=== PATIENT | male | born 1965 | race Two or more races ===

== ENCOUNTER 2018-02-09 13:10 | Inpatient (IN) | payer OTHER ==
[2018-02-09 14:07] VITALS: BMI 26.2
--- NOTE | 2018-02-09 20:18 | HP ---
Admission ROS [facility] Chief Complaint: alcohol, cocaine and marijuana rehab Allergies/Adverse Reactions: Allergies Allergy/AdvReac Type Severity Reaction Status Date / Time No Known Allergies Allergy Verified 02/09/18 19:51 History of Present Illness: 53 yo male with hx of alcohol, cocaine, marijuana and nicotine dependence is here for rehabilitation. Reports was seen at [facility] on 02/03/18 for neck pain. PMHX: HTN. Denies suicidal / homicidal ideation. Denies hx of seizures or blackouts. Reports last detox one year ago [facility]. Longest period of sobriety three months. Reference #: [id number] Others' Prescriptions Patient Name: Tevin Saucedo Date: 1965 Address: [address] [place] [address] Sex: Male Rx Written Rx Dispensed Drug Quantity Days Supply Prescriber Name 01/18/2018 01/18/2018 chlordiazepoxide 25 mg capsule 6 2 Mary Urbina MD Exam Limitations: No Limitations - Ebola screening Have you traveled outside of the country in the last 21 days: No Have you had contact with anyone from an Ebola affected area: No Have you been sick,other than usual withdrawal symptoms: No Do you have a fever: No - Review of Systems Constitutional: Changes in sleep EENT: reports: No Symptoms Reported Respiratory: reports: No Symptoms reported Cardiac: reports: No Symptoms Reported GI: reports: No Symptoms Reported : reports: No Symptoms Reported Musculoskeletal: reports: No Symptoms Reported Integumentary: reports: No Symptoms Reported Neuro: reports: Headache Endocrine: reports: Increased Thirst Hematology: reports: No Symptoms Reported Psychiatric: reports: Orientated x3, Agitated Other Systems: Reviewed and Negative Patient History - Patient Medical History Hx Anemia: No Hx Asthma: No Hx Chronic Obstructive Pulmonary Disease (COPD): No Hx Cancer: No Hx Cardiac Disorders: No Hx Congestive Heart Failure: No Hx Hypertension: Yes Hx Hypercholesterolemia: No Hx Pacemaker: No HX Cerebrovascular Accident: No Hx Seizures: No Hx Dementia: No Hx Diabetes: No Hx Gastrointestinal Disorders: No Hx Liver Disease: No Hx Genitourinary Disorders: No Hx Sexually Transmitted Disorders: No Hx Renal Disease (ESRD): No Hx Thyroid Disease: No Hx Human Immunodeficiency Virus (HIV): No (last tested six months ago ) Hx Hepatitis C: No Hx Depression: No Hx Suicide Attempt: No Hx Bipolar Disorder: No Hx Schizophrenia: No - Patient Surgical History Past Surgical History: No - PPD History Previous Implant?: No Documented Results: Negative w/o proof PPD to be Administered?: Yes - Smoking Cessation Smoking history: Current every day smoker Have you smoked in the past 12 months: Yes Aproximately how many cigarettes per day: 4 Hx Chewing Tobacco Use: No Initiated information on smoking cessation: Yes 'Breaking Loose' booklet given: 02/09/18 - Substance & Tx. History Hx Alcohol Use: Yes Hx Substance Use: Yes Substance Use Type: Alcohol Hx Substance Use Treatment: Yes ([facility] one year ago ) - Substances Abused Alprazolam (Xanax) Route: Oral Cocaine Route: Inhalation Frequency: 1-2 times per week Amount used: $20 Age of first use: 19 Date of Last Use: 02/07/18 Marijuana/Hashish Route: Smoking Frequency: Daily Amount used: $25 Age of first use: 19 Date of Last Use: 02/07/18 alcohol Route: Oral Frequency: Daily Amount used: 1 quart vodka Age of first use: 19 Date of Last Use: 02/07/18 Family Disease History - Family Disease History Family History: Unable to Obtain Admission Physical Exam BHS - Vital Signs Vital Signs: Vital Signs - 24 hr 02/09/18 14:03 Temperature 98.5 F Pulse Rate 52 L Respiratory 18 Rate Blood Pressure 140/83 - Physical General Appearance: Yes: Disheveled, Thin, Irritable HEENTM: Yes: EOMI, Hearing grossly Normal, Normal ENT Inspection, Normocephalic , Normal Voice, RUCHI, Pharynx Normal, Tm's normal Respiratory: Yes: Chest Non-Tender, Lungs Clear, Normal Breath Sounds, No Respiratory Distress, No Accessory Muscle Use Neck: Yes: Within Normal Limits Breast: Yes: Breast Exam Deferred Cardiology: Yes: Within Normal Limits Abdominal: Yes: Normal Bowel Sounds, Non Tender, Flat Genitourinary: Yes: Within Normal Limits Back: Yes: Normal Inspection Musculoskeletal: Yes: full range of Motion, Gait Steady, Pelvis Stable Extremities: Yes: Normal Capillary Refill, Normal Inspection, Normal Range of Motion, Non-Tender Neurological: Yes: belly roller II-XII NML intact, Fully Oriented, Alert, Motor Strength 5/5, Depressed Affect Integumentary: Yes: Normal Color, Dry, Warm Lymphatic: Yes: Within Normal Limits - Diagnostic (1) Hypertension Current Visit: Yes Status: Chronic Qualifiers: Hypertension type: essential hypertension Qualified Code(s): I10 - Essential (primary) hypertension (2) Alcohol dependence Current Visit: Yes Status: Acute Qualifiers: Substance use status: uncomplicated Qualified Code(s): F10.20 - Alcohol dependence, uncomplicated (3) Cannabis dependence Current Visit: Yes Status: Acute (4) Cocaine dependence Current Visit: Yes Status: Acute Qualifiers: Substance use status: uncomplicated Qualified Code(s): F14.20 - Cocaine dependence, uncomplicated BHS Breath Alcohol Content Breath Alcohol Content: 0 Urine Drug Screen - Results Drug Screen Negative: No Urine Drug Screen Results: THC-Marijuana, BZO-Benzodiazepines Inpatient Rehab Admission - Initial Determination Are CD services needed?: Yes Free of communicable disease: Yes Not in need of hospitalization: Yes - Rehab Admission Criteria Previous failed treatment: Yes Poor recovery environment: Yes Comorbidities: Yes Lacks judgement: Yes Patient is meeting Inpatient Rehab admission criteria:: Yes
[2018-02-09] MEDS ORDERED: guaiFENesin/D-METHORPHAN HB 10 ML UNIT-DOSE CUPS PO PRN (20:31)
[2018-02-09] MEDS ORDERED: ACETAMINOPHEN 325 MG TABLET (FP) PO PRN (20:31)
[2018-02-09] MEDS ORDERED: MAGNESIUM CITRATE 300 ML BOTTLE PO PRN (20:31)
[2018-02-09] MEDS ORDERED: NICOTINE POLACRILEX 2 MG GUM BUC PRN (20:31)
[2018-02-09] MEDS ORDERED: MAGNESIUM HYDROX 2400MG/30ML ORAL SUSPENSION 30 ML CUP PO PRN (20:31)
[2018-02-09] MEDS ORDERED: LOPERAMIDE HCL 2 MG CAPSULE PO PRN (20:31)
[2018-02-09] MEDS ORDERED: MENTHOL/PHENOL 1 EACH UD MM PRN (20:31)
[2018-02-09] MEDS ORDERED: hydrOXYzine PAMOATE 50 MG CAPSULE (FP) PO PRN (20:31)
[2018-02-09] MEDS ORDERED: MAG HYDROX/AL HYDROX/SIMETH 30 ML UNIT-DOSE CUP PO PRN (20:31)
[2018-02-09] MEDS ORDERED: P-EPHED 60MG/TRIPROLIDI 2.5MG TABLET PO PRN (20:31)
[2018-02-09 23:03] LABS: URINE APPEARANCE CLEAR; URINE BILIRUBIN NEGATIVE (<2.0 mg/dL); URINE COLOR YELLOW; URINE GLUCOSE (UA) NEGATIVE (NEGATIVE); URINE KETONE NEGATIVE (NEGATIVE); URINE LEUK ESTERASE NEGATIVE (NEGATIVE); URINE NITRITE NEGATIVE (NEGATIVE); URINE PROTEIN NEGATIVE (NEGATIVE); URINE UROBILINOGEN NEGATIVE mg/dL (0.2-1.0)
[2018-02-09] MEDS: METHOCARBAMOL 500 MG TABLET PO SCH (23:23)
[2018-02-09] MEDS: THIAMINE HCL 100 MG TABLET (FP) PO SCH (23:24)
[2018-02-09] MEDS ORDERED: cloNIDine HCL 0.1 MG TABLET PO ONE (23:45)
--- NOTE | 2018-02-10 10:02 | EKG ---
Test Reason : Blood Pressure : / mmHG Vent. Rate : 043 BPM Atrial Rate : 043 BPM P-R Int : 134 ms QRS Dur : 090 ms QT Int : 456 ms P-R-T Axes : 073 039 063 degrees QTc Int : 385 ms MARKED SINUS BRADYCARDIA ABNORMAL ECG NO PREVIOUS ECGS AVAILABLE Confirmed by FABIOLA ACEVEDO MD ([id number]) on 02/10/2018 10:01:57 AM Referred By: Confirmed By:FABIOLA ACEVEDO MD
--- NOTE | 2018-02-10 10:25 | HP ---
Psychiatrist Admission - Data Date of interview: 02/10/18 Admission source: Self-referred Identifying data: This is the first [facility] admission for this 53 years old single male, unemployed on food stamp, homeless Medical History: Significant for hypertension. Smokes 4 cigarettes daily Psychiatric History: Denies history of previous psychiatric treatment Physical/Sexual Abuse/Trauma History: Denies history of emotional, physical or sexual abuse. No service Additional Comment: Reports history of multiple arrests including one felony coviction Vital Signs: Vital Signs - 24 hr 02/09/18 02/09/18 02/10/18 14:03 22:31 00:30 Temperature 98.5 F 98.2 F Pulse Rate 52 L 41 L Respiratory 18 16 18 Rate Blood Pressure 140/83 192/93 02/10/18 02/10/18 03:30 07:09 Temperature 98.1 F Pulse Rate 56 L Respiratory 18 18 Rate Blood Pressure 153/83 Allergies/Adverse Reactions: Allergies Allergy/AdvReac Type Severity Reaction Status Date / Time No Known Allergies Allergy Verified 02/09/18 19:51 Date of last physical exam: 02/09/18 Concur with the findings of this exam: Yes - Substance Abuse/Tx History Hx Alcohol Use: Yes Hx Substance Use: Yes Substance Use Type: Alcohol (Started drinking alcohol at age 19, consumes one quart of vodka daily. Last drank on 02/07/18), Cocaine (Started using cocaine at age 19, consumes $20 worth 1-2 times weekly. Last used on 02/07/18), Marijuana ( Started smoking marijuana at age 19, consumes $25 worth daily. Last smoked on ) Hx Substance Use Treatment: Yes (3-4 previous inpt detox & 3 inpt rehab admissions) Mental Status Exam - Mental Status Exam Alert and Oriented to: Time, Place, Person Cognitive Function: Fair Patient Appearance: Well Groomed Mood: Irritable Affect: Appropriate Patient Behavior: Uncooperative Speech Pattern: Clear Voice Loudness: Normal Thought Process: Intact, Goal Oriented Thought Disorder: Not Present Hallucinations: Denies Suicidal Ideation: Denies Homicidal Ideation: Denies Insight/Judgement: Fair Sleep: Poorly Appetite: Fair Muscle strength/Tone: Normal Gait/Station: Normal Psychiatric Findings - Problem List ([place] 1, 2,3) (1) Alcohol dependence Current Visit: Yes Status: Acute Qualifiers: Substance use status: uncomplicated Qualified Code(s): F10.20 - Alcohol dependence, uncomplicated (2) Cocaine dependence Current Visit: Yes Status: Acute Qualifiers: Substance use status: uncomplicated Qualified Code(s): F14.20 - Cocaine dependence, uncomplicated (3) Cannabis dependence Current Visit: Yes Status: Acute (4) Nicotine dependence Current Visit: Yes Status: Chronic (5) Substance induced mood disorder Current Visit: Yes Status: Acute (6) Substance-induced sleep disorder Current Visit: Yes Status: Acute (7) Hypertension Current Visit: Yes Status: Chronic Qualifiers: Hypertension type: essential hypertension Qualified Code(s): I10 - Essential (primary) hypertension - Initial Treatment Plan Initial Treatment Plan: 1) Start Melatonin 5 mg po HS prn for insomnia. 2) Monitor progress
[2018-02-10] MEDS: amLODIPine BESYLATE 10 MG TABLET (FP) PO SCH (10:49)
[2018-02-10] MEDS: NICOTINE 14 MG/24 HOURS TOPICAL PATCH TD SCH (10:49)
[2018-02-10] MEDS: METHOCARBAMOL 500 MG TABLET PO SCH ×2 (10:49→21:29)
[2018-02-10] MEDS: PRENATAL VITAMINS W/ FOLIC ACID TABLET (FP) PO SCH (10:49)
[2018-02-10 13:21] LABS: ALBUMIN 3.6 g/dl (3.4-5.0); ANION GAP 5 (8-16); BLOOD UREA NITROGEN 11 mg/dL (7-18); CALCIUM 8.4 mg/dL (8.5-10.1); CHLORIDE 105 mmol/L (98-107); CO2 32 mmol/L (21-32); CREATININE 0.9 mg/dL (0.7-1.3); GLUCOSE,RANDOM 117 mg/dL (74-106); POTASSIUM 4.1 mmol/L (3.5-5.1); SGOT/AST 14 U/L (15-37); SGPT/ALT 19 U/L (12-78); SODIUM 142 mmol/L (136-145)
[2018-02-10 13:22] LABS: ALK PHOS 53 U/L (45-117); BILIRUBIN,TOTAL 0.4 mg/dL (0.2-1.0); TOT PROT 6.3 g/dl (6.4-8.2)
[2018-02-10 13:36] LABS: HEMATOCRIT 41.9 % (35.4-49); HEMOGLOBIN 14.2 GM/dL (11.7-16.9); MCH 32.5 pg (25.7-33.7); MCHC 33.9 g/dl (32.0-35.9); MEAN CELL VOLUME 95.9 fl (80-96); MEAN PLT VOLUME 10.6 fl (7.5-11.1); PLATELET COUNT 132 K/MM3 (134-434); RBC 4.37 M/mm3 (4.00-5.60); RDW 13.8 % (11.9-15.9); WHITE BLOOD COUNT 6.4 K/mm3 (4.0-10.0)
[2018-02-10] MEDS: IBUPROFEN 600 MG TABLET (FP) PO PRN (13:52)
[2018-02-10] MEDS: THIAMINE HCL 100 MG TABLET (FP) PO SCH (21:29)
[2018-02-10] MEDS: MELATONIN 5 MG TABLETS PO PRN (21:29)
[2018-02-11] MEDS: amLODIPine BESYLATE 10 MG TABLET (FP) PO SCH (10:39)
[2018-02-11] MEDS: PRENATAL VITAMINS W/ FOLIC ACID TABLET (FP) PO SCH (10:39)
[2018-02-11] MEDS: NICOTINE 14 MG/24 HOURS TOPICAL PATCH TD SCH (10:40)
[2018-02-11] MEDS: METHOCARBAMOL 500 MG TABLET PO SCH ×2 (10:40→21:09)
[2018-02-11] MEDS: MELATONIN 5 MG TABLETS PO PRN (21:09)
[2018-02-11] MEDS: THIAMINE HCL 100 MG TABLET (FP) PO SCH (21:09)
[2018-02-12] MEDS: amLODIPine BESYLATE 10 MG TABLET (FP) PO SCH (10:19)
[2018-02-12] MEDS: PRENATAL VITAMINS W/ FOLIC ACID TABLET (FP) PO SCH (10:19)
[2018-02-12] MEDS: METHOCARBAMOL 500 MG TABLET PO SCH ×2 (10:19→21:23)
[2018-02-12] MEDS: NICOTINE 14 MG/24 HOURS TOPICAL PATCH TD SCH (10:20)
[2018-02-12] MEDS: THIAMINE HCL 100 MG TABLET (FP) PO SCH (21:23)
[2018-02-13] MEDS: PRENATAL VITAMINS W/ FOLIC ACID TABLET (FP) PO SCH (10:13)
[2018-02-13] MEDS: amLODIPine BESYLATE 10 MG TABLET (FP) PO SCH (10:13)
[2018-02-13] MEDS: METHOCARBAMOL 500 MG TABLET PO SCH ×2 (10:13→21:42)
[2018-02-13] MEDS: NICOTINE 14 MG/24 HOURS TOPICAL PATCH TD SCH (10:14)
[2018-02-13] MEDS: THIAMINE HCL 100 MG TABLET (FP) PO SCH (21:42)
[2018-02-14] MEDS: NICOTINE 14 MG/24 HOURS TOPICAL PATCH TD SCH (10:19)
[2018-02-14] MEDS: PRENATAL VITAMINS W/ FOLIC ACID TABLET (FP) PO SCH (10:20)
[2018-02-14] MEDS: METHOCARBAMOL 500 MG TABLET PO SCH ×2 (10:20→21:54)
[2018-02-14] MEDS: amLODIPine BESYLATE 10 MG TABLET (FP) PO SCH (10:20)
[2018-02-14] MEDS: THIAMINE HCL 100 MG TABLET (FP) PO SCH (21:54)
[2018-02-14] MEDS: MELATONIN 5 MG TABLETS PO PRN (21:54)
[2018-02-15] MEDS: METHOCARBAMOL 500 MG TABLET PO SCH ×2 (10:17→21:36)
[2018-02-15] MEDS: amLODIPine BESYLATE 10 MG TABLET (FP) PO SCH (10:17)
[2018-02-15] MEDS: NICOTINE 14 MG/24 HOURS TOPICAL PATCH TD SCH (10:17)
[2018-02-15] MEDS: PRENATAL VITAMINS W/ FOLIC ACID TABLET (FP) PO SCH (10:17)
[2018-02-15] MEDS: THIAMINE HCL 100 MG TABLET (FP) PO SCH (21:36)
[2018-02-15] MEDS: MELATONIN 5 MG TABLETS PO PRN (21:37)
[2018-02-16] MEDS: METHOCARBAMOL 500 MG TABLET PO SCH ×2 (10:23→21:47)
[2018-02-16] MEDS: PRENATAL VITAMINS W/ FOLIC ACID TABLET (FP) PO SCH (10:23)
[2018-02-16] MEDS: amLODIPine BESYLATE 10 MG TABLET (FP) PO SCH (10:23)
[2018-02-16] MEDS: NICOTINE 14 MG/24 HOURS TOPICAL PATCH TD SCH (10:25)
[2018-02-16] MEDS: THIAMINE HCL 100 MG TABLET (FP) PO SCH (21:47)
[2018-02-16] MEDS: MELATONIN 5 MG TABLETS PO PRN (21:47)
[2018-02-17] MEDS: METHOCARBAMOL 500 MG TABLET PO SCH ×2 (09:54→21:29)
[2018-02-17] MEDS: PRENATAL VITAMINS W/ FOLIC ACID TABLET (FP) PO SCH (09:54)
[2018-02-17] MEDS: amLODIPine BESYLATE 10 MG TABLET (FP) PO SCH (09:54)
[2018-02-17] MEDS: NICOTINE 14 MG/24 HOURS TOPICAL PATCH TD SCH (09:55)
[2018-02-17] MEDS: THIAMINE HCL 100 MG TABLET (FP) PO SCH (21:29)
[2018-02-17] MEDS: MELATONIN 5 MG TABLETS PO PRN (21:30)
[2018-02-18] MEDS: PRENATAL VITAMINS W/ FOLIC ACID TABLET (FP) PO SCH (09:42)
[2018-02-18] MEDS: METHOCARBAMOL 500 MG TABLET PO SCH ×2 (09:42→21:51)
[2018-02-18] MEDS: amLODIPine BESYLATE 10 MG TABLET (FP) PO SCH (09:42)
[2018-02-18] MEDS: NICOTINE 14 MG/24 HOURS TOPICAL PATCH TD SCH (09:43)
[2018-02-18] MEDS: MELATONIN 5 MG TABLETS PO PRN (21:50)
[2018-02-18] MEDS: THIAMINE HCL 100 MG TABLET (FP) PO SCH (21:51)
[2018-02-19] MEDS: NICOTINE 14 MG/24 HOURS TOPICAL PATCH TD SCH (10:58)
[2018-02-19] MEDS: PRENATAL VITAMINS W/ FOLIC ACID TABLET (FP) PO SCH (10:58)
[2018-02-19] MEDS: METHOCARBAMOL 500 MG TABLET PO SCH ×2 (10:58→21:54)
[2018-02-19] MEDS: amLODIPine BESYLATE 10 MG TABLET (FP) PO SCH (10:58)
[2018-02-19] MEDS: THIAMINE HCL 100 MG TABLET (FP) PO SCH (21:54)
[2018-02-19] MEDS: MELATONIN 5 MG TABLETS PO PRN (21:55)
[2018-02-20] MEDS ORDERED: PT OWN MED DRAWER 7, Y5N ONE (08:53)
[2018-02-20] MEDS: amLODIPine BESYLATE 10 MG TABLET (FP) PO SCH (10:52)
[2018-02-20] MEDS: NICOTINE 14 MG/24 HOURS TOPICAL PATCH TD SCH (10:52)
[2018-02-20] MEDS: PRENATAL VITAMINS W/ FOLIC ACID TABLET (FP) PO SCH (10:52)
[2018-02-20] MEDS: METHOCARBAMOL 500 MG TABLET PO SCH ×2 (10:52→21:14)
[2018-02-20] MEDS: THIAMINE HCL 100 MG TABLET (FP) PO SCH (21:14)
[2018-02-20] MEDS: MELATONIN 5 MG TABLETS PO PRN (21:14)
[2018-02-21] MEDS: PRENATAL VITAMINS W/ FOLIC ACID TABLET (FP) PO SCH (10:38)
[2018-02-21] MEDS: amLODIPine BESYLATE 10 MG TABLET (FP) PO SCH (10:38)
[2018-02-21] MEDS: METHOCARBAMOL 500 MG TABLET PO SCH ×2 (10:38→21:21)
[2018-02-21] MEDS: NICOTINE 14 MG/24 HOURS TOPICAL PATCH TD SCH (10:38)
[2018-02-21] MEDS: THIAMINE HCL 100 MG TABLET (FP) PO SCH (21:21)
[2018-02-21] MEDS: MELATONIN 5 MG TABLETS PO PRN (21:21)
[2018-02-22] MEDS: amLODIPine BESYLATE 10 MG TABLET (FP) PO SCH (10:41)
[2018-02-22] MEDS: NICOTINE 14 MG/24 HOURS TOPICAL PATCH TD SCH (10:41)
[2018-02-22] MEDS: METHOCARBAMOL 500 MG TABLET PO SCH ×2 (10:41→21:52)
[2018-02-22] MEDS: PRENATAL VITAMINS W/ FOLIC ACID TABLET (FP) PO SCH (10:42)
[2018-02-22] MEDS: IBUPROFEN 600 MG TABLET (FP) PO PRN (11:34)
[2018-02-22] MEDS: MELATONIN 5 MG TABLETS PO PRN (21:52)
[2018-02-22] MEDS: THIAMINE HCL 100 MG TABLET (FP) PO SCH (21:52)
[2018-02-23] MEDS: METHOCARBAMOL 500 MG TABLET PO SCH ×2 (09:25→21:31)
[2018-02-23] MEDS: NICOTINE 14 MG/24 HOURS TOPICAL PATCH TD SCH (09:25)
[2018-02-23] MEDS: amLODIPine BESYLATE 10 MG TABLET (FP) PO SCH (09:25)
[2018-02-23] MEDS: PRENATAL VITAMINS W/ FOLIC ACID TABLET (FP) PO SCH (09:25)
[2018-02-23] MEDS: IBUPROFEN 600 MG TABLET (FP) PO PRN (13:11)
[2018-02-23] MEDS: MELATONIN 5 MG TABLETS PO PRN (21:31)
[2018-02-23] MEDS: THIAMINE HCL 100 MG TABLET (FP) PO SCH (21:31)
[2018-02-24] MEDS: METHOCARBAMOL 500 MG TABLET PO SCH ×2 (09:28→21:29)
[2018-02-24] MEDS: NICOTINE 14 MG/24 HOURS TOPICAL PATCH TD SCH (09:28)
[2018-02-24] MEDS: amLODIPine BESYLATE 10 MG TABLET (FP) PO SCH (09:28)
[2018-02-24] MEDS: PRENATAL VITAMINS W/ FOLIC ACID TABLET (FP) PO SCH (09:28)
[2018-02-24] MEDS: THIAMINE HCL 100 MG TABLET (FP) PO SCH (21:29)
[2018-02-24] MEDS: MELATONIN 5 MG TABLETS PO PRN (21:30)
[2018-02-25] MEDS: PRENATAL VITAMINS W/ FOLIC ACID TABLET (FP) PO SCH (09:56)
[2018-02-25] MEDS: amLODIPine BESYLATE 10 MG TABLET (FP) PO SCH (09:56)
[2018-02-25] MEDS: METHOCARBAMOL 500 MG TABLET PO SCH ×2 (09:56→21:53)
[2018-02-25] MEDS: NICOTINE 14 MG/24 HOURS TOPICAL PATCH TD SCH (09:57)
[2018-02-25] MEDS: THIAMINE HCL 100 MG TABLET (FP) PO SCH (21:52)
[2018-02-25] MEDS: MELATONIN 5 MG TABLETS PO PRN (21:53)
[2018-02-26] MEDS: NICOTINE 14 MG/24 HOURS TOPICAL PATCH TD SCH (09:52)
[2018-02-26] MEDS: METHOCARBAMOL 500 MG TABLET PO SCH ×2 (09:52→21:58)
[2018-02-26] MEDS: amLODIPine BESYLATE 10 MG TABLET (FP) PO SCH (09:52)
[2018-02-26] MEDS: PRENATAL VITAMINS W/ FOLIC ACID TABLET (FP) PO SCH (09:52)
[2018-02-26] MEDS: THIAMINE HCL 100 MG TABLET (FP) PO SCH (21:58)
[2018-02-26] MEDS: MELATONIN 5 MG TABLETS PO PRN (21:59)
[2018-02-27] MEDS: amLODIPine BESYLATE 10 MG TABLET (FP) PO SCH (10:02)
[2018-02-27] MEDS: METHOCARBAMOL 500 MG TABLET PO SCH ×2 (10:02→21:28)
[2018-02-27] MEDS: IBUPROFEN 600 MG TABLET (FP) PO PRN (10:02)
[2018-02-27] MEDS: NICOTINE 14 MG/24 HOURS TOPICAL PATCH TD SCH (10:02)
[2018-02-27] MEDS: PRENATAL VITAMINS W/ FOLIC ACID TABLET (FP) PO SCH (10:03)
[2018-02-27] MEDS: THIAMINE HCL 100 MG TABLET (FP) PO SCH (21:28)
[2018-02-27] MEDS: MELATONIN 5 MG TABLETS PO PRN (21:29)
[2018-02-28] MEDS: METHOCARBAMOL 500 MG TABLET PO SCH ×2 (10:19→21:58)
[2018-02-28] MEDS: amLODIPine BESYLATE 10 MG TABLET (FP) PO SCH (10:19)
[2018-02-28] MEDS: PRENATAL VITAMINS W/ FOLIC ACID TABLET (FP) PO SCH (10:19)
[2018-02-28] MEDS: NICOTINE 14 MG/24 HOURS TOPICAL PATCH TD SCH (10:19)
[2018-02-28] MEDS: MELATONIN 5 MG TABLETS PO PRN (21:58)
[2018-02-28] MEDS: THIAMINE HCL 100 MG TABLET (FP) PO SCH (21:58)
[2018-03-01] MEDS: amLODIPine BESYLATE 10 MG TABLET (FP) PO SCH (10:45)
[2018-03-01] MEDS: METHOCARBAMOL 500 MG TABLET PO SCH ×2 (10:45→21:42)
[2018-03-01] MEDS: NICOTINE 14 MG/24 HOURS TOPICAL PATCH TD SCH (10:45)
[2018-03-01] MEDS: PRENATAL VITAMINS W/ FOLIC ACID TABLET (FP) PO SCH (10:45)
--- NOTE | 2018-03-01 14:06 | PN ---
S Progress Note Note: Vital Signs Temperature 98.3 F 03/01/18 07:16 Pulse Rate 60 03/01/18 09:40 Respiratory Rate 18 03/01/18 09:40 Blood Pressure 135/83 03/01/18 09:40 O2 Sat by Pulse Oximetry (%) Patient schedule to complete program 03/02/18. Patient to follow up with primary care provider 1-2 weeks post discharge. If worsening symptoms are present patient to follow up with ED.
--- NOTE | 2018-03-01 15:13 | PN ---
Psychiatric Progress Note Vital Signs: Vital Signs Period Temp Pulse Resp BP Sys/Al Pulse Ox Last 24 Hr 98.3 F 57-60 16-18 133-135/82-83 Date of Session: 03/01/18 Chief Complaint:: "Discharge" HPI: Patient was admitted to [facility] for alcohol and cocaine dependence. ROS: Significant for hypertension Current Medications: Active Medications Generic Name Dose Route Start Last Admin Trade Name Freq PRN Reason Stop Dose Admin Acetaminophen 650 mg 02/09/18 20:31 Tylenol - PO Q4H PRN FEVER Al Hydroxide/Mg Hydroxide 30 ml 02/09/18 20:31 Mylanta Oral Suspension - PO Q6H PRN DYSPEPSIA Amlodipine Besylate 10 mg 02/10/18 10:00 03/01/18 10:45 Norvasc - PO 10 mg DAILY LEXI Administration Eucalyptus/Menthol/Phenol/Sorbitol 1 each 02/09/18 20:31 Cepastat Lozenge - MM Q4H PRN SORE THROAT Guaifenesin 10 ml 02/09/18 20:31 Robitussin Dm - PO Q6H PRN COUGH Hydroxyzine Pamoate 50 mg 02/09/18 20:31 Vistaril - PO Q4H PRN AGITATION Ibuprofen 600 mg 02/09/18 20:23 02/27/18 10:02 Motrin - PO 600 mg QID PRN Administration HEADACHE Loperamide HCl 4 mg 02/09/18 20:31 Imodium - PO Q6H PRN DIARRHEA Magnesium Citrate 300 ml 02/09/18 20:31 Citroma - PO Q48H PRN CONSTIPATION Magnesium Hydroxide 30 ml 02/09/18 20:31 Milk Of Magnesia - PO DAILY PRN CONSTIPATION Melatonin 5 mg 02/09/18 22:00 02/28/18 21:58 Melatonin PO 5 mg HS PRN Administration INSOMNIA Methocarbamol 500 mg 02/09/18 22:00 03/01/18 10:45 Robaxin - PO 500 mg BID LEXI Administration Nicotine 14 mg 02/10/18 10:00 03/01/18 10:45 Nicoderm Patch - TD 14 mg DAILY LEXI Administration Nicotine Polacrilex 2 mg 02/09/18 20:31 Nicorette Gum - BUC Q2H PRN NICOTINE REPLACEMENT RX Multivit/Folic Acid/Iron 1 tab 02/10/18 10:00 03/01/18 10:45 Vitamins (Sjr) - PO 1 tab DAILY LEXI Administration Pseudoephedrine/Triprolidine 1 combo 02/09/18 20:31 Actifed - PO TID PRN NASAL CONGESTION Thiamine HCl 100 mg 02/09/18 22:00 02/28/18 21:58 Vitamin B1 - PO 100 mg HS LEXI Administration Medication(s) Change(s): No. Current Side Effect: No Lab tests ordered: No Lab tests reviewed: Yes Provider note:: Patient will complete the rehabilitation program on 03/02/18. He has met his treatment goals and is able to identify behaviors that contribute to relapsing. Through participation of this program patient has learned the importance of changing his behaviors and the need for more structure in his life. Pt. will continue to address his issues at the [facility] treatment program. Patient is stable for discharge on 03/02/18. Total face to face time:: 35 Mental Status Exam - Mental Status Exam Alert and Oriented to: Time, Place, Person Cognitive Function: Good Patient Appearance: Well Groomed Mood: Hopeful Affect: Appropriate, Mood Congruent Patient Behavior: Appropriate, Cooperative Speech Pattern: Clear, Appropriate Voice Loudness: Normal Thought Process: Intact, Goal Oriented Thought Disorder: Not Present Hallucinations: Denies Suicidal Ideation: Denies Homicidal Ideation: Denies Insight/Judgement: Good Sleep: Well Appetite: Good Muscle strength/Tone: Normal Gait/Station: Normal Psychiatric Treatment Plan - Problem List (1) Alcohol dependence Current Visit: Yes Qualifiers: Substance use status: uncomplicated Qualified Code(s): F10.20 - Alcohol dependence, uncomplicated (2) Cannabis dependence Current Visit: Yes (3) Cocaine dependence Current Visit: Yes Qualifiers: Substance use status: uncomplicated Qualified Code(s): F14.20 - Cocaine dependence, uncomplicated (4) Substance induced mood disorder Current Visit: Yes (5) Substance-induced sleep disorder Current Visit: Yes
[2018-03-01] MEDS: THIAMINE HCL 100 MG TABLET (FP) PO SCH (21:42)
[2018-03-01] MEDS: MELATONIN 5 MG TABLETS PO PRN (21:42)
[2018-03-02 06:55] VITALS: BP 119/73; PULSE 53; TEMP 97.8
[2018-03-02] MEDS ORDERED: PT OWN MED DRAWER 7, Y5N ONE (08:53)
== END 2018-03-02 09:00 | disposition home or self-care (01) | DRG 772 ==
LOC: EDBD → YASAS 13:10 → Y3W 20:36 → Y3E 02-10 11:50 → Y3W 02-10 11:51
PROVIDERS: ADMIT Psychiatry & Neurology Psychiatry; ATTEND Psychiatry & Neurology Psychiatry
PROC: HZ42ZZZ Group Counseling for Substance Abuse Treatment, Cognitive-Behavioral (ICD-10-PCS; principal; 2018-02-09)
DX: F10.20 Alcohol dependence, uncomplicated (principal); F14.20 Cocaine dependence, uncomplicated; F12.20 Cannabis dependence, uncomplicated; F17.210 Nicotine dependence, cigarettes, uncomplicated; F19.24 Other psychoactive substance dependence with psychoactive substance-induced mood disorder; F19.282 Other psychoactive substance dependence with psychoactive substance-induced sleep disorder; I10 Essential (primary) hypertension
CPT/HCPCS: 36415; 80053; 81003; 85027; 86593; 87389; 93005; 93010; J0735